=== PATIENT | female | born 1975 | race Caucasian/White ===

== ENCOUNTER 2017-06-02 09:12 | Emergency (ER) | payer MEDICAID ==
[~2017-06-02] VITALS: Ht 154.9 cm; Wt 96.0 kg
[~2017-06-02 09:12] MED LIST: HYDR-3498 PO
[2017-06-02 09:14] VITALS: Ht 154.9 cm; Wt 96.0 kg
[2017-06-02] MEDS ORDERED: morphine 4 MG/ML VIAL IV STA (10:17)
[2017-06-02] MEDS ORDERED: SOD CHLORIDE 0.9% 1,000 ML IV STA (10:17)
[2017-06-02] MEDS ORDERED: ONDANSETRON 4 MG INJ IV STA (10:17)
[2017-06-02 11:02] LABS: ADD UMIC YES; UR ASCORBIC ACID NEGATIVE (NEGATIVE); UR BILIRUBIN (Dip) NEGATIVE (NEGATIVE); UR BLOOD (Dip) 1+ mg/dL (NEGATIVE); UR BUDDING YEAST FEW /HPF (NONE SEEN); UR CLARITY CLOUDY (CLEAR); UR COLOR YELLOW (YELLOW); UR GLUCOSE (Dip) NEGATIVE (NEGATIVE); UR KETONES (Dip) NEGATIVE (NEGATIVE); UR LEUKOCYTE ESTERASE (Dip) NEGATIVE Leu/ul (NEGATIVE); UR MUCUS FEW /HPF (NONE SEEN); UR NITRITE (Dip) NEGATIVE (NEGATIVE); UR RBC 6 /HPF (0-5); UR SPECIFIC GRAVITY (Dip) 1.029 (1.003-1.030); UR SQUAMOUS EPITHELIAL CELL MODERATE /HPF (FEW); UR TOTAL PROTEIN (Dip) NEGATIVE (NEGATIVE); UR UROBILINOGEN (Dip) NEGATIVE (NEGATIVE)
[2017-06-02 11:04] LABS: BASOPHILS % 0.3 % (0.0-2.0); EOSINOPHILS # 0.1 10^3/ul (0.0-0.5); EOSINOPHILS % 1.2 % (0.0-7.0); HEMATOCRIT 38.7 % (37.0-47.0); HEMOGLOBIN 12.9 g/dl (12.0-16.0); LYMPHOCYTES # 2.3 10^3/ul (0.8-2.9); LYMPHOCYTES % 25.1 % (15.0-51.0); MEAN CORPUSCULAR HEMOGLOBIN 29.8 pg (29.0-33.0); MEAN CORPUSCULAR HGB CONC 33.3 g/dl (32.0-37.0); MEAN CORPUSCULAR VOLUME 89.4 fl (82.0-101.0); MEAN PLATELET VOLUME 9.8 fl (7.4-10.4); MONOCYTE # 0.5 10^3/ul (0.3-0.9); MONOCYTES % 5.1 % (0.0-11.0); NEUTROPHIL # 6.1 10^3/ul (1.6-7.5); NEUTROPHILS % 67.9 % (39.0-77.0); PLATELET COUNT 279 10^3/UL (140-415); RED BLOOD COUNT 4.33 10^6/ul (4.20-5.40); RED CELL DISTRIBUTION WIDTH 13.6 % (11.5-14.5)
[2017-06-02 11:08] LABS: ALBUMIN 4.4 g/dl (3.3-4.9); ALBUMIN/GLOBULIN RATIO 1.07; BILIRUBIN,INDIRECT 0.4 mg/dl (0-1.1); BILIRUBIN,TOTAL 0.4 mg/dl (0.2-1.3); CREATININE 0.69 mg/dl (0.44-1.00); POTASSIUM 3.9 mmol/L (3.5-5.1); TOTAL PROTEIN 8.5 g/dl (6.1-8.1)
--- NOTE | 2017-06-02 11:19 | RADRPT ---
PROCEDURE: CT Abdomen and Pelvis with contrast. CLINICAL INDICATION: Abdominal pain.. TECHNIQUE: CT scan of the abdomen and pelvis with contrast was performed on a multi-detector high- resolution CT scanner. The patient was scanned following the uncomplicated intravenous administrati on of 100 cc of Omnipaque-300. Coronal and sagittal reformatted images were obtained from the axial source images. Images were reviewed on a high-resolution PACS workstation. One or the following dose reduction techniques were used: -Automated exposure control. -Adjustment of the mA and/or KV according to patient's size. -Use of iterative reconstruction technique. DOSE: CTDI: (Vol. ) 22.57 mGy, DLP: 1407.52 mGy-cm COMPARISON: Abdominal ultrasound from 02/07/2016. FINDINGS: Lung Bases: Unremarkable. GI:. Unremarkable. Liver: Unremarkable. Gallbladder: Gallbladder demonstrates mild wall thickening without filling defects. The common bile duct measures 1.0 cm. Pancreas: Unremarkable. Spleen: There is mild splenomegaly at 13 cm in length with a homogeneous enhancement. There is a 1.0 cm splenule at the inferior tip of the spleen. Adrenals: Unremarkable. Kidneys: Kidneys function symmetrically. There is no evidence of urolithiasis or obstructive uropath y. Bladder: Unremarkable. Pelvic Organs: Unremarkable. Skeleton: Normal for age. Other: There is a moderate sized umbilical hernia containing fat only. IMPRESSION: 1. Mild gallbladder wall thickening with mild dilation of the common bile duct of uncertain signific ance. There is no definite cholelithiasis or choledocholithiasis appreciated on CT. 2. Minimal scattered colonic diverticulosis without evidence of acute diverticulitis. 3. Moderate sized umbilical hernia containing fat only. 4. Normal-appearing vermiform appendix visualized. 5. Mild splenomegaly. RPTAT: [facility] Physician Ganga Date Time Electronically viewed and signed by Physician Ganga on 06/02/2017 11:18 /
--- NOTE | 2017-06-02 13:24 | RADRPT ---
PROCEDURE: Right Upper Quadrant Ultrasound. CLINICAL INDICATION: gallbladder wall thickening noted on CT, abdominal pain TECHNIQUE: Multiple real-time images were acquired of the patient's right upper quadrant abdomen a nd retroperitoneum utilizing a high resolution transducer. COMPARISON: CT abdomen/pelvis from the same date FINDINGS: The liver measures 15.7 cm, and demonstrates moderately increased echogenicity. The main portal vein is patent with proper directional flow. There is no intrahepatic biliary ductal dilatation. The ext rahepatic common bile duct measures 10 mm. There is cholelithiasis. There is mild nonspecific gallbladder wall thickening to 4 mm. There is no pericholecystic fluid. The pancreas is not visualized. The right kidney measures 10.8 cm and demonstrates normal echotexture. There is no right renal calcu reynaldo or hydronephrosis. The visualized abdominal aorta and IVC are grossly unremarkable. IMPRESSION: There is cholelithiasis as well as mild nonspecific gallbladder wall thickening to 4 mm which may be due to acute cholecystitis in the appropriate clinical setting. The common bile duct is dilated, me asuring up to 10 mm, which raises the possibility of choledocholithiasis. Correlation for signs of c holestasis such as an elevated bilirubin level is recommended. An MRCP can be obtained for further e valuation, if indicated. Moderate fatty infiltration of the liver. RPTAT: EE Physician Maya Date Time Electronically viewed and signed by Physician Maya on 06/02/2017 13:24 /
[2017-06-02] MEDS ORDERED: TRAM50TA2 PO (14:39)
[2017-06-02 15:07] VITALS: BP 141/68; PULSE 65; RESP 18; TEMP 98.5
--- NOTE | 2017-06-02 16:22 | ERD ---
ER Documentation Chief Complaint Chief Complaint MID ABD PAIN SINCE MIDNIGHT HPI 41-year-old female patient with no significant past medical history presents to the ED complaining of mid abdominal pain that started last night. States that she has had intermittent abdominal pain for the past few months. Reports that she has a hernia as well as gallstones. States that her pain is predominantly in the mid abdominal periumbilical region as well as right lower quadrant. Describes the pain as achy and rates it a 8 out of 10. States that she takes Advil and Tylenol at home. She has 2 episodes of nonbilious nonbloody vomiting. Denies any chest pain, shortness of breath, diarrhea, constipation. ROS All systems reviewed and are negative except as per history of present illness. Medications Home Meds Active Scripts Tramadol HCl (Tramadol HCl) 50 Mg Tablet, 50 MG PO Q6, #20 TAB Prov:GARY PATRICK PA-C 06/02/17 Hydrocodone Bit-Acetaminophen* ([place]*) 5-325 Mg Tab, 1 TAB PO Q6H Y for PAIN, # 10 TAB Prov:JOSE STEVENSON NP 02/09/16 Allergies Allergies: Coded Allergies: No Known Allergy (Verified , 02/07/16) PMhx/Soc History of Surgery: Yes ( X2) Anesthesia Reaction: No Hx Neurological Disorder: No Hx Respiratory Disorders: No Hx Cardiac Disorders: No Hx Psychiatric Problems: No Hx Miscellaneous Medical Probl: No (hernia ) Hx Alcohol Use: No Hx Substance Use: No Hx Tobacco Use: No Physical Exam Vitals Vital Signs Date Time Temp Pulse Resp B/P Pulse Ox O2 Delivery O2 Flow Rate FiO2 06/02/17 15:07 98.5 65 18 141/68 99 Room Air 06/02/17 09:14 98.9 74 19 128/60 97 Physical Exam Const: Jew-[id number]-[id number], well-nourished. In no acute distress. Head: Atraumatic, normocephalic Eyes: Normal Conjunctiva without injection. No purulent discharge. ENT: Normal external ear, nose. Moist oropharynx without tonsillar exudates. Non -erythematous pharynx. Uvula midline. No drooling. No trismus. Neck: No cervical midline tenderness. Full range of motion. No meningismus. No cervical lymphadenopathy. No JVD. Resp: Clear to auscultation bilaterally. No wheezing, rhonchi, rales, or crackles. No accessory muscle use. No retractions. Cardio: Regular rate and rhythm. No murmurs, rubs or gallops. Abd: Soft, nontender, non distended. Normal bowel sounds. No palpable masses. No rebound tenderness. No guarding. Negative McBurney's point. Negative psoas sign. Negative obturator sign. Skin: No petechiae or rashes Back: No midline tenderness. No CVA tenderness. Ext: No cyanosis, or edema. Neur: Awake and alert. Normal gait. Normal coordination. Psych: Normal Mood and Affect Results 24 hrs Laboratory Tests Test 06/02/17 10:30 06/02/17 10:31 White Blood Count 9.010^3/ul Red Blood Count 4.3310^6/ul Hemoglobin 12.9g/dl Hematocrit 38.7% Mean Corpuscular Volume 89.4fl Mean Corpuscular Hemoglobin 29.8pg Mean Corpuscular Hemoglobin Concent 33.3g/dl Red Cell Distribution Width 13.6% Platelet Count 03874^3/UL Mean Platelet Volume 9.8fl Neutrophils % 67.9% Lymphocytes % 25.1% Monocytes % 5.1% Eosinophils % 1.2% Basophils % 0.3% Nucleated Red Blood Cells % 0.0/100WBC Neutrophils # 6.110^3/ul Lymphocytes # 2.310^3/ul Monocytes # 0.510^3/ul Eosinophils # 0.110^3/ul Basophils # 0.010^3/ul Nucleated Red Blood Cells # 0.010^3/ul Sodium Level 143mmol/L Potassium Level 3.9mmol/L Chloride Level 107mmol/L Carbon Dioxide Level 25mmol/L Anion Gap 15 Blood Urea Nitrogen 11mg/dl Creatinine 0.69mg/dl Glucose Level 88mg/dl Calcium Level 9.0mg/dl Total Bilirubin 0.4mg/dl Direct Bilirubin 0.00mg/dl Indirect Bilirubin 0.4mg/dl Aspartate Amino Transf (AST/SGOT) 25IU/L Alanine Aminotransferase (ALT/SGPT) 39IU/L Alkaline Phosphatase 77IU/L Total Protein 8.5g/dl Albumin 4.4g/dl Globulin 4.10g/dl Albumin/Globulin Ratio 1.07 Lipase 103U/L Urine Color YELLOW Urine Clarity CLOUDY Urine pH 5.0 Urine Specific Taylor 1.029 Urine Ketones NEGATIVEmg/dL Urine Nitrite NEGATIVEmg/dL Urine Bilirubin NEGATIVEmg/dL Urine Urobilinogen NEGATIVEmg/dL Urine Leukocyte Esterase NEGATIVELeu/ul Urine Microscopic RBC 6/HPF Urine Microscopic WBC 2/HPF Urine Squamous Epithelial Cells MODERATE/HPF Urine Mucus FEW/HPF Urine Yeast (Budding) FEW/HPF Urine Hemoglobin 1+mg/dL Urine Glucose NEGATIVEmg/dL Urine Total Protein NEGATIVEmg/dl Current Medications Medications (Trade) Dose Ordered Sig/Gaurang Route PRN Reason Start Time Stop Time Status Last Admin Dose Admin Sodium Chloride (NS) 1,000 ml @ 1,000 mls/hr Q1H STAT IV 06/02/17 10:06/02/17 11:16 DC 06/02/17 10:38 Morphine Sulfate (morphine) 4 mg ONCE STAT IV 06/02/17 10:06/02/17 10:20 DC 06/02/17 10:38 Ondansetron HCl (Zofran Inj) 4 mg ONCE STAT IV 06/02/17 10:17 06/02/17 10:20 DC 06/02/17 10:37 Procedures/MDM 41-year-old female patient with past medical history of gallstones, hernia presents to the ED complaining of abdominal pain that started last night. Patient is afebrile and nontoxic-appearing. Patient was further worked up with CBC, CMP, lipase, UA, CT abdomen and pelvis with contrast. Patient's pain and symptoms have improved after treatment with 1 L normal saline, 4 mg IV morphine , 4 mg IV Zofran. CBC: No leukocytosis. No e/o of systemic infection. No e/o anemia. CMP: No e/o severe acidosis, alkalosis, renal failure, diabetic ketoacidosis, liver disease Lipase within normal limits. Urine: No leukocyte esterase, no nitrites, no hematuria. Urine : Negative PROCEDURE: CT Abdomen and Pelvis with contrast. CLINICAL INDICATION: Abdominal pain.. TECHNIQUE: CT scan of the abdomen and pelvis with contrast was performed on a multi-detector high-resolution CT scanner. The patient was scanned following the uncomplicated intravenous administration of 100 cc of Omnipaque-300. Coronal and sagittal reformatted images were obtained from the axial source images. Images were reviewed on a high-resolution PACS workstation. One or the following dose reduction techniques were used: -Automated exposure control. -Adjustment of the mA and/or KV according to patient's size. -Use of iterative reconstruction technique. DOSE: CTDI: (Vol. ) 22.57 mGy, DLP: 1407.52 mGy-cm COMPARISON: Abdominal ultrasound from 02/07/2016. FINDINGS: Lung Bases: Unremarkable. GI:. Unremarkable. Liver: Unremarkable. Gallbladder: Gallbladder demonstrates mild wall thickening without filling defects. The common bile duct measures 1.0 cm. Pancreas: Unremarkable. Spleen: There is mild splenomegaly at 13 cm in length with a homogeneous enhancement. There is a 1.0 cm splenule at the inferior tip of the spleen. Adrenals: Unremarkable. Kidneys: Kidneys function symmetrically. There is no evidence of urolithiasis or obstructive uropathy. Bladder: Unremarkable. Pelvic Organs: Unremarkable. Skeleton: Normal for age. Other: There is a moderate sized umbilical hernia containing fat only. IMPRESSION: 1. Mild gallbladder wall thickening with mild dilation of the common bile duct of uncertain significance. There is no definite cholelithiasis or choledocholithiasis appreciated on CT. 2. Minimal scattered colonic diverticulosis without evidence of acute diverticulitis. 3. Moderate sized umbilical hernia containing fat only. 4. Normal-appearing vermiform appendix visualized. 5. Mild splenomegaly. PROCEDURE: Right Upper Quadrant Ultrasound. CLINICAL INDICATION: gallbladder wall thickening noted on CT, abdominal pain TECHNIQUE: Multiple real-time images were acquired of the patient's right upper quadrant abdomen and retroperitoneum utilizing a high resolution transducer. COMPARISON: CT abdomen/pelvis from the same date FINDINGS: The liver measures 15.7 cm, and demonstrates moderately increased echogenicity. The main portal vein is patent with proper directional flow. There is no intrahepatic biliary ductal dilatation. The extrahepatic common bile duct measures 10 mm. There is cholelithiasis. There is mild nonspecific gallbladder wall thickening to 4 mm. There is no pericholecystic fluid. The pancreas is not visualized. The right kidney measures 10.8 cm and demonstrates normal echotexture. There is no right renal calculus or hydronephrosis. The visualized abdominal aorta and IVC are grossly unremarkable. IMPRESSION: There is cholelithiasis as well as mild nonspecific gallbladder wall thickening to 4 mm which may be due to acute cholecystitis in the appropriate clinical setting. The common bile duct is dilated, measuring up to 10 mm, which raises the possibility of choledocholithiasis. Correlation for signs of cholestasis such as an elevated bilirubin level is recommended. An MRCP can be obtained for further evaluation, if indicated. Moderate fatty infiltration of the liver. Patient has cholelithiasis with mild nonspecific gallbladder wall thickening to 4 mm however patient has this chronically and had a MRCP in 2016 with no acute findings. Low suspicion for ectopic , ovarian torsion, gastritis, GERD , peptic ulcer disease, cholecystitis, choledocholithiasis, cholangitis, pancreatitis, appendicitis, bowel obstruction, ileus, volvulus, nephrolithiasis , pyelonephritis, hepatitis, perforated viscus, diverticulitis, strangulated/ incarcerated hernia, DKA, acute abdomen, mesenteric ischemia or other emergent conditions. This was discussed with my supervising physician Dr. Sykes who recommended outpatient management. Discharge medications: Tramadol Follow up with primary care physician in 1-2 days for referral to a general surgeon. Instructed patient to return to the ED sooner for any worsening symptoms. Patient's questions were answered. Patient understood and agreed with discharge plan. Patient discharged stable. Departure Diagnosis: Primary Impression: Abdominal pain Abdominal location: periumbilical Qualified Code: R10.33 - Periumbilical abdominal pain Condition: Stable Patient Instructions: Abdominal Pain, Biliary Colic With Gallstone (Confirmed) , Hernia (Inguinal, Ventral, Umbilical) Referrals: [facility] Usted se hermosillo hecho un examen mdico de control que le indica que no est en sandra condicin que requiera tratamiento urgente en el Departamento de Emergencia. Un estudio ms profundo y el tratamiento de castro condicin pueden esperar sin ningn riesgo hasta que usted sea atendida/o en el consultorio de castro mdico o sandra cl jignesh. Es responsabilidad suya arreglar sandra shayan para el seguimiento del debora. MANEJO DE CONDICIONES NO URGENTES EN EL FUTURO 1) Si usted tiene un mdico de atencin primaria: Usted debera llamar a castro mdico de atencin primaria antes de venir al departamento de emergencia. Despus de las horas de consultorio, castro doctor o castro asociado/a est disponible por telfono. El mdico o enfermero de álvaro en el servicio telefnico puede asesorarle por marty medio para atender el problema, o debora contrario se puede programar sandra shayan. 2) Si usted no tiene un mdico de atencin primaria: Llame al mdico o clnica de referencia que aparece abajo kacy las horas de consultorio para hacer sandra shayan para que le vean. CLINICAS: [facility] [phone] [facility] [phone] [facility] [phone] [address] [place] [id number] [phone] [place] [id number] [phone] [facility] [phone] [facility]. [facility] () Usted se hermosillo hecho un examen mdico de control que le indica que no est en sandra condicin que requiera tratamiento urgente en el Departamento de Emergencia. Un estudio ms profundo y el tratamiento de castro condicin pueden esperar sin ningn riesgo hasta que usted sea atendida/o en el consultorio de castro mdico o sandra cl jignesh. Es responsabilidad suya arreglar sandra shayan para el seguimiento del debora. MANEJO DE CONDICIONES NO URGENTES EN EL FUTURO 1) Si usted tiene un mdico de atencin primaria: Usted debera llamar a castro mdico de atencin primaria antes de venir al departamento de emergencia. Despus de las horas de consultorio, castro doctor o castro asociado/a est disponible por telfono. El mdico o enfermero de álvaro en el servicio telefnico puede asesorarle por marty medio para atender el problema, o debora contrario se puede programar sandra sahyan. 2) Si usted no tiene un mdico de atencin primaria: Llame al mdico o condado institucions de referencia que aparece abajo kayc las horas de consultorio para hacer sandra shayan para que le vean. SI USTED NO PUEDE PAGAR PARA CONNIE UN MEDICO puede ir a: [facility] [id number] [place] [address] [facility] [address] [place] [address] [facility] [address] [place] [address] [facility] [address] [place] [address] Additional Instructions: Llame al doctor MAANA y sissy sandra SHAYAN PARA DENTRO DE 2-3 RUBALCAVA para sandra referencia para connie a un cirujano general.Dgale a la secretaria que nosotros le instruimos hacer esta shayan.Avise o llame si castro condicin se empeora antes de la shayan. Regresa aqui si peor o no mejor. GARY PATRICK PA-C Jun 02, 2017 16:22 GARY PATRICK PA-C Jun 02, 2017 16:22
== END 2017-06-02 15:33 | disposition home or self-care (01) ==
LOC: FTE 09:12
DX: R10.33 Periumbilical pain (principal)
CPT/HCPCS: 36415; 74177; 76705; 80053; 81001; 83690; 85025; 96374; 96375; J2270; J2405; J7030; Z7502